=== PATIENT | female | born 1960 | race Native Hawaiian/Other Pacific Islander ===

== ENCOUNTER 2021-08-11 12:26 | Emergency (ER) | payer OTHER ==
[~2021-08-11] VITALS: Ht 152.4 cm; Wt 63.5 kg
[2021-08-11 13:20] LABS: PLATELET COUNT 222 K/uL (152-353)
[2021-08-11 13:28] LABS: POTASSIUM 3.5 mmol/L (3.6-5.2)
[2021-08-14 01:06] VITALS: TEMP 97.9
[2021-08-14 07:00] VITALS: BP 128/75
== END 2021-08-14 10:40 | disposition other institution (70) ==
LOC: ED 12:26
PROVIDERS: Emergency Medicine
DX: F20.89 Other schizophrenia (principal); F32.9 Major depressive disorder, single episode, unspecified; Z11.52 Encounter for screening for COVID-19
CPT/HCPCS: 36415; 80053; 80307; 81000; 85027; 87635; 93005; 96372; 99285; J1885; U0003